=== PATIENT | male | born 1960 | race African-American/Black ===

== ENCOUNTER 2020-04-25 18:48 | Inpatient (IN) | payer OTHER ==
[2020-04-25] MEDS ORDERED: MAGNESIUM HYDROX 2400MG/30ML ORAL SUSPENSION 30 ML CUP PO PRN (20:34)
[2020-04-25] MEDS ORDERED: IBUPROFEN 400 MG TABLET (FP) PO PRN (20:34)
[2020-04-25] MEDS ORDERED: NICOTINE POLACRILEX 2 MG GUM BC PRN (20:34)
[2020-04-25] MEDS ORDERED: MAGNESIUM CITRATE 300 ML BOTTLE PO PRN (20:34)
[2020-04-25] MEDS ORDERED: guaiFENesin 200 MG/10 ML 10 ML UNIT-DOSE CUPS PO PRN (20:34)
[2020-04-25] MEDS ORDERED: LOPERAMIDE HCL 2 MG CAPSULE PO PRN (20:34)
[2020-04-25] MEDS ORDERED: P-EPHED 60MG/TRIPROLIDI 2.5MG TABLET PO PRN (20:34)
[2020-04-25] MEDS ORDERED: ACETAMINOPHEN 325 MG TABLET (FP) PO PRN (20:34)
[2020-04-25] MEDS ORDERED: MAG HYDROX/AL HYDROX/SIMETH 30 ML UNIT-DOSE CUP PO PRN (20:34)
[2020-04-25 21:35] VITALS: BMI 23.0
[2020-04-25] MEDS: MELATONIN 5 MG TABLETS PO SCH (22:25)
[2020-04-25] MEDS: THIAMINE HCL 100 MG TABLET (FP) PO SCH (22:25)
[2020-04-25] MEDS ORDERED: TUBERCULIN PPD 5 TU/0.1ML VIAL ID ONE (22:28)
[2020-04-25] MEDS: ATORVASTATIN CA 20 MG TABLET (FP) PO SCH (22:29)
[2020-04-25] MEDS: APIXABAN 5 MG TABLET PO SCH (22:29)
[2020-04-25] MEDS: TIOTROPIUM BROMIDE 2.5 MCG (SPIRIVA) RESPIMAT INHALER IH SCH (22:32)
[2020-04-26] MEDS ORDERED: PT OWN MED DRAWER 7, Y5N ONE (08:31)
[2020-04-26] MEDS: FUROSEMIDE 20 MG TABLET (FP) PO SCH (10:07)
[2020-04-26] MEDS: LISINOPRIL 5 MG TABLET PO SCH (10:07)
[2020-04-26] MEDS: APIXABAN 5 MG TABLET PO SCH ×2 (10:07→21:16)
[2020-04-26] MEDS: FOLIC ACID 1 MG TABLET (FP) PO SCH (10:07)
[2020-04-26] MEDS: MULTIVITAMINS (DAILY MVI) TABLET (FP) PO SCH (10:07)
[2020-04-26] MEDS: PRENATAL VITAMINS W/ FOLIC ACID TABLET (FP) PO SCH (10:07)
[2020-04-26] MEDS: THIAMINE HCL 100 MG TABLET (FP) PO SCH ×2 (10:07→21:17)
[2020-04-26] MEDS: DIGOXIN 0.125 MG TABLET (FP) PO SCH (10:08)
[2020-04-26] MEDS: NICOTINE 7 MG/24 HOURS TOPICAL PATCH TD SCH (10:08)
[2020-04-26] MEDS: TIOTROPIUM BROMIDE 2.5 MCG (SPIRIVA) RESPIMAT INHALER IH SCH (10:09)
[2020-04-26 11:48] LABS: PH,URINE 7.5 (5.0-8.0); URINE APPEARANCE CLEAR; URINE BILIRUBIN NEGATIVE (NEGATIVE); URINE COLOR YELLOW; URINE GLUCOSE (UA) NEGATIVE (NEGATIVE); URINE KETONE TRACE (NEGATIVE); URINE LEUK ESTERASE NEGATIVE (NEGATIVE); URINE NITRITE NEGATIVE (NEGATIVE); URINE PROTEIN NEGATIVE (NEGATIVE)
[2020-04-26 11:53] LABS: HEMATOCRIT 48.8 % (35.4-49); HEMOGLOBIN 16.5 GM/dL (11.7-16.9); MCH 34.5 pg (25.7-33.7); MCHC 33.9 g/dl (32.0-35.9); MEAN CELL VOLUME 101.8 fl (80-96); MEAN PLT VOLUME 8.7 fl (7.5-11.1); PLATELET COUNT 175 K/MM3 (134-434); RBC 4.79 M/mm3 (4.00-5.60); RDW 15.3 % (11.9-15.9); WHITE BLOOD COUNT 4.4 K/mm3 (4.0-10.0)
[2020-04-26 11:55] LABS: POTASSIUM 4.6 mmol/L (3.5-5.1)
[2020-04-26 11:57] LABS: BLOOD UREA NITROGEN 13.8 mg/dL (7-18)
[2020-04-26 11:59] LABS: ALBUMIN 3.5 g/dl (3.4-5.0)
[2020-04-26 12:02] LABS: CREATININE 0.9 mg/dL (0.55-1.3)
[2020-04-26 12:04] LABS: TOT PROT 6.2 g/dl (6.4-8.2)
[2020-04-26] MEDS: ATORVASTATIN CA 20 MG TABLET (FP) PO SCH (21:16)
[2020-04-26] MEDS: MELATONIN 5 MG TABLETS PO SCH (21:17)
[2020-04-27] MEDS: APIXABAN 5 MG TABLET PO SCH ×2 (09:39→21:56)
[2020-04-27] MEDS: FUROSEMIDE 20 MG TABLET (FP) PO SCH (10:39)
[2020-04-27] MEDS: LISINOPRIL 5 MG TABLET PO SCH (10:39)
[2020-04-27] MEDS: FOLIC ACID 1 MG TABLET (FP) PO SCH (10:39)
[2020-04-27] MEDS: MULTIVITAMINS (DAILY MVI) TABLET (FP) PO SCH (10:39)
[2020-04-27] MEDS: DIGOXIN 0.125 MG TABLET (FP) PO SCH (10:40)
[2020-04-27] MEDS: PRENATAL VITAMINS W/ FOLIC ACID TABLET (FP) PO SCH (10:42)
[2020-04-27] MEDS: NICOTINE 7 MG/24 HOURS TOPICAL PATCH TD SCH (10:43)
[2020-04-27] MEDS: TIOTROPIUM BROMIDE 2.5 MCG (SPIRIVA) RESPIMAT INHALER IH SCH (10:44)
[2020-04-27] MEDS: THIAMINE HCL 100 MG TABLET (FP) PO SCH ×2 (11:23→21:55)
[2020-04-27] MEDS: MELATONIN 5 MG TABLETS PO SCH (21:56)
[2020-04-27] MEDS: ATORVASTATIN CA 20 MG TABLET (FP) PO SCH (21:56)
[2020-04-28] MEDS: NICOTINE 7 MG/24 HOURS TOPICAL PATCH TD SCH (09:54)
[2020-04-28] MEDS: PRENATAL VITAMINS W/ FOLIC ACID TABLET (FP) PO SCH (09:54)
[2020-04-28] MEDS: LISINOPRIL 5 MG TABLET PO SCH (09:54)
[2020-04-28] MEDS: THIAMINE HCL 100 MG TABLET (FP) PO SCH ×2 (09:54→21:07)
[2020-04-28] MEDS: MULTIVITAMINS (DAILY MVI) TABLET (FP) PO SCH (09:55)
[2020-04-28] MEDS: FUROSEMIDE 20 MG TABLET (FP) PO SCH (09:55)
[2020-04-28] MEDS: APIXABAN 5 MG TABLET PO SCH ×2 (09:55→21:07)
[2020-04-28] MEDS: DIGOXIN 0.125 MG TABLET (FP) PO SCH (09:56)
[2020-04-28] MEDS: FOLIC ACID 1 MG TABLET (FP) PO SCH (09:56)
[2020-04-28] MEDS: TIOTROPIUM BROMIDE 2.5 MCG (SPIRIVA) RESPIMAT INHALER IH SCH (09:59)
[2020-04-28] MEDS: MELATONIN 5 MG TABLETS PO SCH (21:07)
[2020-04-28] MEDS: ATORVASTATIN CA 20 MG TABLET (FP) PO SCH (21:08)
[2020-04-29] MEDS: TIOTROPIUM BROMIDE 2.5 MCG (SPIRIVA) RESPIMAT INHALER IH SCH (09:57)
[2020-04-29] MEDS: FUROSEMIDE 20 MG TABLET (FP) PO SCH (09:57)
[2020-04-29] MEDS: LISINOPRIL 5 MG TABLET PO SCH (09:57)
[2020-04-29] MEDS: PRENATAL VITAMINS W/ FOLIC ACID TABLET (FP) PO SCH (09:57)
[2020-04-29] MEDS: FOLIC ACID 1 MG TABLET (FP) PO SCH (09:57)
[2020-04-29] MEDS: MULTIVITAMINS (DAILY MVI) TABLET (FP) PO SCH (09:57)
[2020-04-29] MEDS: THIAMINE HCL 100 MG TABLET (FP) PO SCH ×2 (09:57→21:42)
[2020-04-29] MEDS: APIXABAN 5 MG TABLET PO SCH ×2 (09:57→21:42)
[2020-04-29] MEDS: DIGOXIN 0.125 MG TABLET (FP) PO SCH (09:58)
[2020-04-29] MEDS: NICOTINE 7 MG/24 HOURS TOPICAL PATCH TD SCH (09:58)
[2020-04-29] MEDS: MELATONIN 5 MG TABLETS PO SCH (21:42)
[2020-04-29] MEDS: ATORVASTATIN CA 20 MG TABLET (FP) PO SCH (21:42)
[2020-04-30] MEDS: PRENATAL VITAMINS W/ FOLIC ACID TABLET (FP) PO SCH (09:53)
[2020-04-30] MEDS: FUROSEMIDE 20 MG TABLET (FP) PO SCH (09:53)
[2020-04-30] MEDS: LISINOPRIL 5 MG TABLET PO SCH (09:53)
[2020-04-30] MEDS: THIAMINE HCL 100 MG TABLET (FP) PO SCH ×2 (09:53→21:28)
[2020-04-30] MEDS: APIXABAN 5 MG TABLET PO SCH ×2 (09:53→21:28)
[2020-04-30] MEDS: FOLIC ACID 1 MG TABLET (FP) PO SCH (09:53)
[2020-04-30] MEDS: MULTIVITAMINS (DAILY MVI) TABLET (FP) PO SCH (09:53)
[2020-04-30] MEDS: DIGOXIN 0.125 MG TABLET (FP) PO SCH (09:54)
[2020-04-30] MEDS: NICOTINE 7 MG/24 HOURS TOPICAL PATCH TD SCH (09:54)
[2020-04-30] MEDS: TIOTROPIUM BROMIDE 2.5 MCG (SPIRIVA) RESPIMAT INHALER IH SCH (09:54)
[2020-04-30] MEDS: ATORVASTATIN CA 20 MG TABLET (FP) PO SCH (21:28)
[2020-04-30] MEDS: MELATONIN 5 MG TABLETS PO SCH (21:29)
[2020-05-01] MEDS: FOLIC ACID 1 MG TABLET (FP) PO SCH (09:55)
[2020-05-01] MEDS: MULTIVITAMINS (DAILY MVI) TABLET (FP) PO SCH (09:55)
[2020-05-01] MEDS: LISINOPRIL 5 MG TABLET PO SCH (09:55)
[2020-05-01] MEDS: NICOTINE 7 MG/24 HOURS TOPICAL PATCH TD SCH (09:55)
[2020-05-01] MEDS: APIXABAN 5 MG TABLET PO SCH ×2 (09:55→21:20)
[2020-05-01] MEDS: THIAMINE HCL 100 MG TABLET (FP) PO SCH ×2 (09:55→21:20)
[2020-05-01] MEDS: PRENATAL VITAMINS W/ FOLIC ACID TABLET (FP) PO SCH (09:55)
[2020-05-01] MEDS: FUROSEMIDE 20 MG TABLET (FP) PO SCH (09:55)
[2020-05-01] MEDS: DIGOXIN 0.125 MG TABLET (FP) PO SCH (09:56)
[2020-05-01] MEDS: TIOTROPIUM BROMIDE 2.5 MCG (SPIRIVA) RESPIMAT INHALER IH SCH (10:01)
[2020-05-01] MEDS: MELATONIN 5 MG TABLETS PO SCH (21:20)
[2020-05-01] MEDS: ATORVASTATIN CA 20 MG TABLET (FP) PO SCH (21:20)
[2020-05-02] MEDS ORDERED: PT OWN MED DRAWER 7, Y5N ONE (08:41)
[2020-05-02] MEDS: NICOTINE 7 MG/24 HOURS TOPICAL PATCH TD SCH (10:07)
[2020-05-02] MEDS: FOLIC ACID 1 MG TABLET (FP) PO SCH (10:07)
[2020-05-02] MEDS: MULTIVITAMINS (DAILY MVI) TABLET (FP) PO SCH (10:07)
[2020-05-02] MEDS: APIXABAN 5 MG TABLET PO SCH ×2 (10:07→21:25)
[2020-05-02] MEDS: FUROSEMIDE 20 MG TABLET (FP) PO SCH (10:07)
[2020-05-02] MEDS: LISINOPRIL 5 MG TABLET PO SCH (10:07)
[2020-05-02] MEDS: TIOTROPIUM BROMIDE 2.5 MCG (SPIRIVA) RESPIMAT INHALER IH SCH (10:07)
[2020-05-02] MEDS: THIAMINE HCL 100 MG TABLET (FP) PO SCH ×2 (10:07→21:26)
[2020-05-02] MEDS: PRENATAL VITAMINS W/ FOLIC ACID TABLET (FP) PO SCH (10:07)
[2020-05-02] MEDS: DIGOXIN 0.125 MG TABLET (FP) PO SCH (10:08)
[2020-05-02] MEDS: ATORVASTATIN CA 20 MG TABLET (FP) PO SCH (21:25)
[2020-05-02] MEDS: MELATONIN 5 MG TABLETS PO SCH (21:26)
[2020-05-03] MEDS ORDERED: PT OWN MED DRAWER 7, Y5N ONE (08:52)
[2020-05-03] MEDS: FOLIC ACID 1 MG TABLET (FP) PO SCH (10:10)
[2020-05-03] MEDS: LISINOPRIL 5 MG TABLET PO SCH (10:34)
[2020-05-03] MEDS: PRENATAL VITAMINS W/ FOLIC ACID TABLET (FP) PO SCH (10:34)
[2020-05-03] MEDS: APIXABAN 5 MG TABLET PO SCH ×2 (10:34→21:17)
[2020-05-03] MEDS: NICOTINE 7 MG/24 HOURS TOPICAL PATCH TD SCH (10:34)
[2020-05-03] MEDS: MULTIVITAMINS (DAILY MVI) TABLET (FP) PO SCH (10:34)
[2020-05-03] MEDS: FUROSEMIDE 20 MG TABLET (FP) PO SCH (10:35)
[2020-05-03] MEDS: THIAMINE HCL 100 MG TABLET (FP) PO SCH ×2 (10:35→21:18)
[2020-05-03] MEDS: DIGOXIN 0.125 MG TABLET (FP) PO SCH (10:57)
[2020-05-03] MEDS: TIOTROPIUM BROMIDE 2.5 MCG (SPIRIVA) RESPIMAT INHALER IH SCH (10:58)
[2020-05-03] MEDS: ATORVASTATIN CA 20 MG TABLET (FP) PO SCH (21:17)
[2020-05-03] MEDS: MELATONIN 5 MG TABLETS PO SCH (21:18)
[2020-05-04] MEDS: LISINOPRIL 5 MG TABLET PO SCH (09:53)
[2020-05-04] MEDS: APIXABAN 5 MG TABLET PO SCH ×2 (09:53→21:41)
[2020-05-04] MEDS: PRENATAL VITAMINS W/ FOLIC ACID TABLET (FP) PO SCH (09:53)
[2020-05-04] MEDS: MULTIVITAMINS (DAILY MVI) TABLET (FP) PO SCH (09:53)
[2020-05-04] MEDS: FOLIC ACID 1 MG TABLET (FP) PO SCH (09:53)
[2020-05-04] MEDS: NICOTINE 7 MG/24 HOURS TOPICAL PATCH TD SCH (09:54)
[2020-05-04] MEDS: THIAMINE HCL 100 MG TABLET (FP) PO SCH ×2 (09:54→21:41)
[2020-05-04] MEDS: FUROSEMIDE 20 MG TABLET (FP) PO SCH (09:54)
[2020-05-04] MEDS: TIOTROPIUM BROMIDE 2.5 MCG (SPIRIVA) RESPIMAT INHALER IH SCH (09:57)
[2020-05-04] MEDS: DIGOXIN 0.125 MG TABLET (FP) PO SCH (09:57)
[2020-05-04] MEDS: ATORVASTATIN CA 20 MG TABLET (FP) PO SCH (21:41)
[2020-05-04] MEDS: MELATONIN 5 MG TABLETS PO SCH (21:41)
[2020-05-05] MEDS: NICOTINE 7 MG/24 HOURS TOPICAL PATCH TD SCH (10:18)
[2020-05-05] MEDS: PRENATAL VITAMINS W/ FOLIC ACID TABLET (FP) PO SCH (10:18)
[2020-05-05] MEDS: APIXABAN 5 MG TABLET PO SCH ×2 (10:18→20:41)
[2020-05-05] MEDS: THIAMINE HCL 100 MG TABLET (FP) PO SCH ×2 (10:19→21:39)
[2020-05-05] MEDS: FOLIC ACID 1 MG TABLET (FP) PO SCH (10:19)
[2020-05-05] MEDS: FUROSEMIDE 20 MG TABLET (FP) PO SCH (10:20)
[2020-05-05] MEDS: DIGOXIN 0.125 MG TABLET (FP) PO SCH (10:20)
[2020-05-05] MEDS: LISINOPRIL 5 MG TABLET PO SCH (10:20)
[2020-05-05] MEDS: TIOTROPIUM BROMIDE 2.5 MCG (SPIRIVA) RESPIMAT INHALER IH SCH (10:21)
[2020-05-05] MEDS: MULTIVITAMINS (DAILY MVI) TABLET (FP) PO SCH (12:00)
[2020-05-05] MEDS: MELATONIN 5 MG TABLETS PO SCH (21:38)
[2020-05-05] MEDS: ATORVASTATIN CA 20 MG TABLET (FP) PO SCH (21:38)
[2020-05-06] MEDS: FUROSEMIDE 20 MG TABLET (FP) PO SCH (09:07)
[2020-05-06] MEDS: LISINOPRIL 5 MG TABLET PO SCH (09:08)
[2020-05-06] MEDS: APIXABAN 5 MG TABLET PO SCH ×2 (09:08→22:14)
[2020-05-06] MEDS: FOLIC ACID 1 MG TABLET (FP) PO SCH (09:09)
[2020-05-06] MEDS: PRENATAL VITAMINS W/ FOLIC ACID TABLET (FP) PO SCH (09:10)
[2020-05-06] MEDS: NICOTINE 7 MG/24 HOURS TOPICAL PATCH TD SCH (09:10)
[2020-05-06] MEDS: TIOTROPIUM BROMIDE 2.5 MCG (SPIRIVA) RESPIMAT INHALER IH SCH (09:23)
[2020-05-06] MEDS: DIGOXIN 0.125 MG TABLET (FP) PO SCH (09:23)
[2020-05-06] MEDS: THIAMINE HCL 100 MG TABLET (FP) PO SCH ×2 (09:24→22:15)
[2020-05-06] MEDS: ATORVASTATIN CA 20 MG TABLET (FP) PO SCH (22:14)
[2020-05-06] MEDS: MELATONIN 5 MG TABLETS PO SCH (22:14)
[2020-05-07] MEDS: APIXABAN 5 MG TABLET PO SCH ×2 (09:50→21:51)
[2020-05-07] MEDS: FOLIC ACID 1 MG TABLET (FP) PO SCH (10:48)
[2020-05-07] MEDS: PRENATAL VITAMINS W/ FOLIC ACID TABLET (FP) PO SCH (10:48)
[2020-05-07] MEDS: FUROSEMIDE 20 MG TABLET (FP) PO SCH (10:48)
[2020-05-07] MEDS: LISINOPRIL 5 MG TABLET PO SCH (10:49)
[2020-05-07] MEDS: THIAMINE HCL 100 MG TABLET (FP) PO SCH ×2 (10:49→21:51)
[2020-05-07] MEDS: DIGOXIN 0.125 MG TABLET (FP) PO SCH (10:49)
[2020-05-07] MEDS: NICOTINE 7 MG/24 HOURS TOPICAL PATCH TD SCH (10:49)
[2020-05-07] MEDS: TIOTROPIUM BROMIDE 2.5 MCG (SPIRIVA) RESPIMAT INHALER IH SCH (10:50)
[2020-05-07] MEDS: MELATONIN 5 MG TABLETS PO SCH (21:51)
[2020-05-07] MEDS: ATORVASTATIN CA 20 MG TABLET (FP) PO SCH (21:51)
[2020-05-08] MEDS: APIXABAN 5 MG TABLET PO SCH ×2 (09:37→21:53)
[2020-05-08] MEDS: FOLIC ACID 1 MG TABLET (FP) PO SCH (10:37)
[2020-05-08] MEDS: PRENATAL VITAMINS W/ FOLIC ACID TABLET (FP) PO SCH (10:37)
[2020-05-08] MEDS: FUROSEMIDE 20 MG TABLET (FP) PO SCH (10:38)
[2020-05-08] MEDS: NICOTINE 7 MG/24 HOURS TOPICAL PATCH TD SCH (10:38)
[2020-05-08] MEDS: THIAMINE HCL 100 MG TABLET (FP) PO SCH ×2 (10:38→21:53)
[2020-05-08] MEDS: LISINOPRIL 5 MG TABLET PO SCH (10:38)
[2020-05-08] MEDS: TIOTROPIUM BROMIDE 2.5 MCG (SPIRIVA) RESPIMAT INHALER IH SCH (10:39)
[2020-05-08] MEDS: DIGOXIN 0.125 MG TABLET (FP) PO SCH (10:39)
[2020-05-08] MEDS: ATORVASTATIN CA 20 MG TABLET (FP) PO SCH (21:52)
[2020-05-08] MEDS: MELATONIN 5 MG TABLETS PO SCH (21:53)
[2020-05-09] MEDS: APIXABAN 5 MG TABLET PO SCH ×2 (09:32→21:46)
[2020-05-09] MEDS: NICOTINE 7 MG/24 HOURS TOPICAL PATCH TD SCH (10:32)
[2020-05-09] MEDS: FUROSEMIDE 20 MG TABLET (FP) PO SCH (10:32)
[2020-05-09] MEDS: THIAMINE HCL 100 MG TABLET (FP) PO SCH ×2 (10:32→21:46)
[2020-05-09] MEDS: PRENATAL VITAMINS W/ FOLIC ACID TABLET (FP) PO SCH (10:32)
[2020-05-09] MEDS: FOLIC ACID 1 MG TABLET (FP) PO SCH (10:32)
[2020-05-09] MEDS: DIGOXIN 0.125 MG TABLET (FP) PO SCH (10:33)
[2020-05-09] MEDS: LISINOPRIL 5 MG TABLET PO SCH (10:33)
[2020-05-09] MEDS: TIOTROPIUM BROMIDE 2.5 MCG (SPIRIVA) RESPIMAT INHALER IH SCH (10:33)
[2020-05-09] MEDS: ATORVASTATIN CA 20 MG TABLET (FP) PO SCH (21:46)
[2020-05-09] MEDS: MELATONIN 5 MG TABLETS PO SCH (21:46)
[2020-05-10] MEDS: NICOTINE 7 MG/24 HOURS TOPICAL PATCH TD SCH (10:42)
[2020-05-10] MEDS: LISINOPRIL 5 MG TABLET PO SCH (10:42)
[2020-05-10] MEDS: FUROSEMIDE 20 MG TABLET (FP) PO SCH (10:42)
[2020-05-10] MEDS: PRENATAL VITAMINS W/ FOLIC ACID TABLET (FP) PO SCH (10:42)
[2020-05-10] MEDS: DIGOXIN 0.125 MG TABLET (FP) PO SCH (10:42)
[2020-05-10] MEDS: APIXABAN 5 MG TABLET PO SCH ×2 (10:43→21:49)
[2020-05-10] MEDS: THIAMINE HCL 100 MG TABLET (FP) PO SCH ×2 (10:43→21:49)
[2020-05-10] MEDS: FOLIC ACID 1 MG TABLET (FP) PO SCH (10:43)
[2020-05-10] MEDS: TIOTROPIUM BROMIDE 2.5 MCG (SPIRIVA) RESPIMAT INHALER IH SCH (10:43)
[2020-05-10] MEDS: ALBUTEROL SO4 HFA INHALER IH PRN (10:44)
[2020-05-10] MEDS: MELATONIN 5 MG TABLETS PO SCH (21:49)
[2020-05-10] MEDS: ATORVASTATIN CA 20 MG TABLET (FP) PO SCH (21:49)
[2020-05-11] MEDS: FOLIC ACID 1 MG TABLET (FP) PO SCH (10:29)
[2020-05-11] MEDS: LISINOPRIL 5 MG TABLET PO SCH (10:29)
[2020-05-11] MEDS: FUROSEMIDE 20 MG TABLET (FP) PO SCH (10:29)
[2020-05-11] MEDS: APIXABAN 5 MG TABLET PO SCH (10:29)
[2020-05-11] MEDS: PRENATAL VITAMINS W/ FOLIC ACID TABLET (FP) PO SCH (10:29)
[2020-05-11] MEDS: THIAMINE HCL 100 MG TABLET (FP) PO SCH (10:29)
[2020-05-11] MEDS: NICOTINE 7 MG/24 HOURS TOPICAL PATCH TD SCH (10:29)
[2020-05-11] MEDS: ALBUTEROL SO4 HFA INHALER IH PRN (10:30)
[2020-05-11] MEDS: DIGOXIN 0.125 MG TABLET (FP) PO SCH (10:30)
[2020-05-11 10:32] VITALS: PULSE 78
[2020-05-11] MEDS: TIOTROPIUM BROMIDE 2.5 MCG (SPIRIVA) RESPIMAT INHALER IH SCH (10:49)
[2020-05-11 11:04] VITALS: BP 101/80; TEMP 98.2
== END 2020-05-11 13:15 | disposition home or self-care (01) | DRG 772 ==
LOC: YASAS 18:48 → Y3W 21:15
PROVIDERS: ADMIT Allergy & Immunology; ATTEND Allergy & Immunology
PROC: HZ42ZZZ Group Counseling for Substance Abuse Treatment, Cognitive-Behavioral (ICD-10-PCS; principal; 2020-04-25)
DX: F10.20 Alcohol dependence, uncomplicated (principal); F14.20 Cocaine dependence, uncomplicated; F17.210 Nicotine dependence, cigarettes, uncomplicated; I11.0 Hypertensive heart disease with heart failure; I50.9 Heart failure, unspecified; I48.92 Unspecified atrial flutter; Z79.01 Long term (current) use of anticoagulants; R73.03 Prediabetes; Z98.890 Other specified postprocedural states; Z56.0 Unemployment, unspecified; Z59.0 Homelessness
CPT/HCPCS: 36415; 80053; 81003; 85027; 86593; 86780; 93005; 93010; C9803; U0003

== ENCOUNTER 2020-11-04 11:47 | Inpatient (IN) | payer OTHER ==
[2020-11-04 17:09] VITALS: BMI 26.6
[2020-11-04] MEDS ORDERED: MAG HYDROX/AL HYDROX/SIMETH 30 ML UNIT-DOSE CUP PO PRN (18:06)
[2020-11-04] MEDS ORDERED: BISMUTH SUBSALICYLATE 524 MG/30 ML PO PRN (18:06)
[2020-11-04] MEDS ORDERED: MAGNESIUM HYDROX 2400MG/30ML ORAL SUSPENSION 30 ML CUP PO PRN (18:06)
[2020-11-04] MEDS ORDERED: MAGNESIUM CITRATE 300 ML BOTTLE PO PRN (18:06)
[2020-11-04] MEDS ORDERED: METHOCARBAMOL 500 MG TABLET PO PRN (18:06)
[2020-11-04] MEDS ORDERED: ONDANSETRON *ODT* 4 MG TABLET SL PRN (18:06)
[2020-11-04] MEDS ORDERED: LORazepam 1 MG TABLET PO PRN (18:06)
[2020-11-04] MEDS ORDERED: ACETAMINOPHEN 325 MG TABLET (FP) PO PRN ×2 (18:06)
[2020-11-04] MEDS ORDERED: MENTHOL/PHENOL 1 EACH UD MM PRN (18:06)
[2020-11-04] MEDS ORDERED: LORazepam 2 MG TABLET PO ONE (18:06)
[2020-11-04] MEDS ORDERED: cloNIDine HCL 0.1 MG TABLET PO ONE (18:11)
[2020-11-04] MEDS ORDERED: cloNIDine HCL 0.1 MG TABLET ONE (18:54)
[2020-11-04] MEDS ORDERED: LORazepam 2 MG TABLET ONE (18:55)
[2020-11-04] MEDS: LORazepam 2 MG TABLET PO SCH (22:54)
[2020-11-04] MEDS: ATORVASTATIN CA 20 MG TABLET (FP) PO SCH (22:54)
[2020-11-04] MEDS: APIXABAN 5 MG TABLET PO SCH (22:54)
[2020-11-04] MEDS: THIAMINE HCL 100 MG TABLET (FP) PO SCH (22:54)
[2020-11-04] MEDS: MELATONIN 5 MG TABLETS PO SCH (22:56)
[2020-11-05] MEDS: LORazepam 2 MG TABLET PO SCH ×4 (07:45→22:30)
[2020-11-05] MEDS: LISINOPRIL 5 MG TABLET PO SCH (10:12)
[2020-11-05] MEDS: DIGOXIN 0.125 MG TABLET PO SCH (10:12)
[2020-11-05] MEDS: FUROSEMIDE 20 MG TABLET (FP) PO SCH (10:12)
[2020-11-05] MEDS: APIXABAN 5 MG TABLET PO SCH ×2 (10:12→22:31)
[2020-11-05] MEDS: PRENATAL VITAMINS W/ FOLIC ACID TABLET (FP) PO SCH (10:25)
[2020-11-05] MEDS: TIOTROPIUM BROMIDE 2.5 MCG (SPIRIVA) RESPIMAT INHALER IH SCH ×2 (11:40→12:33)
[2020-11-05 15:02] LABS: BLOOD UREA NITROGEN 11.1 mg/dL (7-18); CALCIUM 9.2 mg/dL (8.5-10.1); HEMATOCRIT 51.1 % (35.4-49); HEMOGLOBIN 17.3 GM/dL (11.7-16.9); MCHC 33.8 g/dl (32.0-35.9); MEAN CELL VOLUME 100.5 fl (80-96); MEAN PLT VOLUME 8.3 fl (7.5-11.1); PLATELET COUNT 244 10^3/uL (134-434); RBC 5.08 M/mm3 (4.00-5.60); WHITE BLOOD COUNT 5.7 K/mm3 (4.0-10.0)
[2020-11-05 15:03] LABS: ALBUMIN 4.2 g/dl (3.4-5.0)
[2020-11-05 15:08] LABS: TOT PROT 7.2 g/dl (6.4-8.2)
[2020-11-05] MEDS: NICOTINE 10 MG CARTRIDGE (INHALER) IH PRN (18:41)
[2020-11-05] MEDS: ATORVASTATIN CA 20 MG TABLET (FP) PO SCH (22:31)
[2020-11-05] MEDS: MELATONIN 5 MG TABLETS PO SCH (22:31)
[2020-11-05] MEDS: THIAMINE HCL 100 MG TABLET (FP) PO SCH (22:31)
[2020-11-06] MEDS: LORazepam 1 MG TABLET PO SCH ×2 (06:03→10:21)
[2020-11-06 09:37] VITALS: BP 136/89; PULSE 62; TEMP 96.1
[2020-11-06] MEDS: NICOTINE 10 MG CARTRIDGE (INHALER) IH PRN (10:19)
[2020-11-06] MEDS: DIGOXIN 0.125 MG TABLET PO SCH (10:19)
[2020-11-06] MEDS: APIXABAN 5 MG TABLET PO SCH (10:20)
[2020-11-06] MEDS: LISINOPRIL 5 MG TABLET PO SCH (10:20)
[2020-11-06] MEDS: FUROSEMIDE 20 MG TABLET (FP) PO SCH (10:20)
[2020-11-06] MEDS: TIOTROPIUM BROMIDE 2.5 MCG (SPIRIVA) RESPIMAT INHALER IH SCH (10:21)
[2020-11-06] MEDS: PRENATAL VITAMINS W/ FOLIC ACID TABLET (FP) PO SCH (10:21)
[2020-11-07] MEDS ORDERED: LORazepam 0.5 MG TABLET PO PRN
[2020-11-07] MEDS ORDERED: LORazepam 0.5 MG TABLET PO SCH (05:00)
[2020-11-08] MEDS ORDERED: LORazepam 0.5 MG TABLET PO ONE (05:00)
== END 2020-11-06 10:54 | disposition left against medical advice (07) | DRG 770 ==
LOC: YASAS 11:47 → Y3N 18:49
PROVIDERS: ADMIT Allergy & Immunology; ATTEND Allergy & Immunology
PROC: HZ2ZZZZ Detoxification Services for Substance Abuse Treatment (ICD-10-PCS; principal; 2020-11-04)
DX: F10.230 Alcohol dependence with withdrawal, uncomplicated (principal); F14.10 Cocaine abuse, uncomplicated; F17.210 Nicotine dependence, cigarettes, uncomplicated; I25.10 Atherosclerotic heart disease of native coronary artery without angina pectoris; I11.0 Hypertensive heart disease with heart failure; I50.9 Heart failure, unspecified; I49.9 Cardiac arrhythmia, unspecified; J44.9 Chronic obstructive pulmonary disease, unspecified; R73.03 Prediabetes; Z86.79 Personal history of other diseases of the circulatory system; Z86.16 Personal history of COVID-19; Z86.19 Personal history of other infectious and parasitic diseases
CPT/HCPCS: 36415; 80053; 85027; 86593; 86780; C9803; J0735; U0003; U0005